=== PATIENT | female | born 1965 | race Caucasian/White ===

== ENCOUNTER 2021-03-12 21:04 | Inpatient (IN) | payer OTHER ==
[~2021-03-12] VITALS: Ht 165.1 cm; Wt 154.9 kg
[2021-03-12 21:06] VITALS: BP 166/74
[2021-03-12] MEDS ORDERED: TRAZODONE HCL50 MG PO (21:11)
[2021-03-12] MEDS ORDERED: CALCIUM500 MG PO (21:11)
[2021-03-12] MEDS ORDERED: ASA81BEC PO (21:11)
[2021-03-12] MEDS ORDERED: ZOLOFT25 MG PO (21:11)
[2021-03-12] MEDS ORDERED: B12 ACTIVE1000 MCG PO (21:12)
[2021-03-12] MEDS ORDERED: VITAMIN C500 M2 PO (21:12)
[2021-03-12] MEDS ORDERED: OMEPRAZOLE40 MG PO (21:12)
[2021-03-12] MEDS ORDERED: OXYBUTYNIN 5 MG5 M2 PO (21:13)
[2021-03-12] MEDS ORDERED: LIPITOR20 MG PO (21:13)
[2021-03-12 21:33] LABS: ABSOLUTE EOSINOPHILS 0.1 thou/uL (0.0-0.7); ABSOLUTE LYMPHOCYTES 0.9 thou/uL (0.8-5.3); ABSOLUTE MONOCYTES 0.2 thou/uL (0.0-1.2); EOSINOPHILS 2.8 %; HEMOGLOBIN 12.5 gm/dL (12.0-15.0); LYMPHOCYTES 28.6 %; MCH 30.1 pg (26.0-34.0); MCHC 33.8 g/dL (28.0-37.0); MCV 89.1 fL (80.0-100.0); MONOCYTES 7.4 %; MPV 7.5 fl. (7.2-11.1); NUCLEATED RBCS 0 /100WBC; PLATELET COUNT* 101 thou/uL (150-400); POLYS 60.2 %; RBC 4.16 mil/uL (4.20-5.00); RDW-CV 14.6 % (10.5-14.5); WBC 3.3 thou/uL (4.0-11.0)
[2021-03-12 21:42] LABS: CALCIUM 8.5 mg/dL (8.5-10.1); CREATININE 1.1 mg/dL (0.6-1.3); POTASSIUM 4.3 mmol/L (3.5-5.1)
[2021-03-12 21:46] LABS: ALBUMIN 3.4 g/dL (3.4-5.0); MAGNESIUM 1.8 mg/dL (1.8-2.4); TOTAL BILIRUBIN 0.7 mg/dL (<0.1-1.0); TOTAL PROTEIN 7.2 g/dL (6.4-8.2)
[2021-03-12 23:29] LABS: URINE BILIRUBIN NEGATIVE (Negative); URINE BLOOD TRACE (Negative); URINE COLOR YELLOW; URINE GLUCOSE-RANDOM NEGATIVE (Negative); URINE KETONES NEGATIVE (Negative); URINE PROTEIN NEGATIVE (Negative); URINE SPECIFIC GRAVITY <= 1.005 (1.005-1.030); URINE UROBILINOGEN 0.2 E.U./dl (0.2-1.0)
[2021-03-12 23:31] LABS: URINE CLARITY SL CLOUDY; URINE LEUKOCYTES-REFLEX 3+ (Negative); URINE NITRITE-REFLEX POSITIVE (Negative)
[2021-03-12 23:39] LABS: BACTERIA-REFLEX >30 Many /HPF (None Seen); CASTS None Seen /LPF (None Seen); CRYSTALS None Seen /LPF (None Seen); MUCUS 4-6 Moderate strn/LPF (None Seen); SQUAMOUS 0-3 Few /LPF (0-3); URINE WBC-REFLEX >25 Many /HPF (0-5); WBC CLUMPS Few (None Seen)
[2021-03-13 02:00] VITALS: BP 142/70
--- NOTE | 2021-03-13 04:45 | NUR ---
PT ARRIVED TO THE UNIT AT 0230. A&O X 4. ON RA. FENTANYL GIVEN FOR PAIN. IVF INFUISING ORDERED. CALL LIGHT WITHIN REACH. WILL CONTINUE TO MONITOR.
[2021-03-13 05:58] VITALS: BP 168/70
[2021-03-13 08:05] VITALS: BP 152/84
--- NOTE | 2021-03-13 11:42 | EKG ---
[place] [address] ELECTROCARDIOGRAM REPORT Name: PIERO ORTIZ Room: [address] [facility]#: [id number] Admission: 03/13/21 Attend Phys: Skinny Stover, Discharge: Date of : 61 Date of Service: 03/12/212118 Report #: [id number] THIS REPORT FOR: //name// [facility] ED Test Date: 2021-03-12 Test Time: 21:19:53 Pat Name: PIERO ORTIZ Department: Room: [facility] Gender: F Clinic Physician: RAULITO : [id number] Requested By: Sheila Alfonso Order Number: [id number] MD: Armin Castro Measurements Intervals [place] Rate: 66 P: 66 ME: 173 QRS: 27 QRSD: 97 T: 33 QT: 398 QTc: 417 Interpretive Statements Sinus rhythm Low voltage, precordial leads Probable anteroseptal infarct, old No previous ECG available for comparison Electronically Signed On 03-13-2021 11:42:14 CDT by Armin Castro [email or web address] <ELECTRONICALLY SIGNED> By: Jose R Castro MD, [facility] 03/13/21 1142 18 18 Jose R Castro MD, [facility] /EPI
--- NOTE | 2021-03-13 14:43 | NUR ---
Pt is A&O. Resides at home. Pt uses a walker and wc for mobility. Hx of HH and SNF. Therapy evals ordered. Further imaging to be completed. IR consulted. CM following for dc needs.
[2021-03-13 15:55] VITALS: BP 144/81
--- NOTE | 2021-03-13 18:14 | NUR ---
PATIENT HAS REMAINED A&OX4, PLEASANT AND COOPERATIVE WITH CARES THIS SHIFT. FLUIDS AND PRN PAIN MEDICATION ADMINISTERED ORDERED. PATIENT CALLS OUT APPROPRIATELY FOR ASSISTANCE WITH GETTING UP TO BSC. CALL LIGHT AND FREQUENTLY USED ITEMS WITHIN REACH.
[2021-03-13 19:45] VITALS: BP 157/76
--- NOTE | 2021-03-14 05:15 | NUR ---
PT A&O X 4. ON RA. BP HIGH. BACK PAIN MANAGED WITH FENTANYL. C/O HEADACHE AND TYLENOL GIVEN. UP TO BSC WITH SBA. INCONTINENT AT TIMES. IVF INFUISING. CALL LIGHT WITHIN REACH. WILL CONTINUE TO MONITOR.
[2021-03-14 08:12] VITALS: BP 183/109
[2021-03-14 10:40] LABS: ABSOLUTE EOSINOPHILS 0.1 thou/uL (0.0-0.7); ABSOLUTE LYMPHOCYTES 0.9 thou/uL (0.8-5.3); ABSOLUTE MONOCYTES 0.2 thou/uL (0.0-1.2); ABSOLUTE NEUTROPHILS 1.3 thou/uL (1.6-8.1); BASOPHILS 1.1 %; EOSINOPHILS 4.7 %; HEMATOCRIT 37.7 % (37.0-47.0); HEMOGLOBIN 12.5 gm/dL (12.0-15.0); LYMPHOCYTES 35.6 %; MCH 29.9 pg (26.0-34.0); MCHC 33.2 g/dL (28.0-37.0); MCV 90.3 fL (80.0-100.0); MONOCYTES 8.2 %; MPV 8.2 fl. (7.2-11.1); NUCLEATED RBCS 0 /100WBC; PLATELET COUNT* 103 thou/uL (150-400); POLYS 50.4 %; RBC 4.17 mil/uL (4.20-5.00); RDW-CV 14.7 % (10.5-14.5); WBC 2.5 thou/uL (4.0-11.0)
[2021-03-14 11:06] LABS: CALCIUM 8.6 mg/dL (8.5-10.1); POTASSIUM 4.3 mmol/L (3.5-5.1)
--- NOTE | 2021-03-14 13:33 | NUR ---
Pt will be inpt for a few more days. Ortho consulted. Therapies to see post ortho recs. ARU consulted. CM following.
[2021-03-14 16:55] VITALS: BP 140/79
--- NOTE | 2021-03-14 17:08 | NUR ---
pt up with gait belt and 1 asst. pt did have pain rated at a 6 early this am was given pain meds and then again at 1445. Pain has moved to a rate of 2 and pt is resting with call light in reach and fall precautions in place.
[2021-03-14 21:15] VITALS: BP 155/71
[2021-03-14 23:33] VITALS: BP 147/79
[2021-03-15 04:41] VITALS: BP 179/94
--- NOTE | 2021-03-15 05:08 | NUR ---
PT AO X4 THIS PM SHIFT, SHE REPORTS PAIN IN NECK AND BACK 5/10 FOR WHICH ORAL AND IV MEDS WERE ADMINISTERED WITH GOOD RESULTS. PT IS PERIODICALY INCONTINENT OF URINE, SHE DID GET UP TO BSC AND HAD A BM LAST PM. PT HAS VARIOUS BRUISES ALL OVER FROM HOW SHE EXPLAINS HER RECENT FALLS. PT HAS IVF INFUSING PER MAR, CALL LIGHT WITHIN REACH, BED ALARM ON FOR SAFETY
[2021-03-15 07:10] VITALS: BP 176/83
[2021-03-15 10:12] LABS: HEMATOCRIT 38.5 % (37.0-47.0); HEMOGLOBIN 12.6 gm/dL (12.0-15.0); MCHC 32.7 g/dL (28.0-37.0); MCV 88.8 fL (80.0-100.0); MPV 7.1 fl. (7.2-11.1); RBC 4.34 mil/uL (4.20-5.00); RDW-CV 14.8 % (10.5-14.5); WBC 2.8 thou/uL (4.0-11.0)
[2021-03-15 10:24] LABS: CALCIUM 8.8 mg/dL (8.5-10.1); CREATININE 1.1 mg/dL (0.6-1.3); POTASSIUM 4.4 mmol/L (3.5-5.1)
[2021-03-15 15:40] VITALS: BP 139/72
--- NOTE | 2021-03-15 15:57 | NUR ---
PT REMIANED ALERT AND ORIENTED. INCONTINENT AT TIMES. PAIN MEDS GIVEN ORDERED. FALL RISK PRECAUTIONS IN PLACE. HOURLY ROUNDING COMPLETED.
[2021-03-15 20:30] VITALS: BP 170/81
--- NOTE | 2021-03-16 07:15 | NUR ---
PATIENT SLEPT MOST OF THE NIGHT. IV FLUIDS CONTINUE TO INFUSE ORDERED. PATIENT WAS GIVEN PAIN MEDICINE ONCE THIS SHIFT. WILL CONTINUE TO MONITOR.
[2021-03-16 07:20] VITALS: BP 172/85
[2021-03-16] MEDS ORDERED: LEVOFLOXACIN500 MG PO (09:53)
[2021-03-16 12:05] VITALS: BP 172/85
--- NOTE | 2021-03-16 15:23 | NUR ---
PT GIVEN DISCHARGE INFORMATION. CARE NOTES, AND PRESCRIPTION. IV REMOVED. PT BELONGINGS GATHERED. PT LEFT VIA WHEELCHAIR WITH NURSING STAFF TO HOME WITH HOME HEALTH.
== END 2021-03-16 15:35 | disposition home health service (06) | DRG 553 ==
LOC: M.ERS 21:04 → M.TBA-ER 03-13 00:32 → M.3W 03-13 00:32
PROVIDERS: Emergency Medicine; Internal Medicine; ADMIT Internal Medicine; ATTEND Internal Medicine
DX: M87.151 Osteonecrosis due to drugs, right femur (principal); D61.811 Other drug-induced pancytopenia; S32.010A Wedge compression fracture of first lumbar vertebra, initial encounter for closed fracture; Z68.43 Body mass index [BMI] 50.0-59.9, adult; N30.00 Acute cystitis without hematuria; E66.01 Morbid (severe) obesity due to excess calories; I10 Essential (primary) hypertension; M06.9 Rheumatoid arthritis, unspecified; F32.9 Major depressive disorder, single episode, unspecified; M19.90 Unspecified osteoarthritis, unspecified site; M81.0 Age-related osteoporosis without current pathological fracture; M16.11 Unilateral primary osteoarthritis, right hip; M85.80 Other specified disorders of bone density and structure, unspecified site; T38.0X5A Adverse effect of glucocorticoids and synthetic analogues, initial encounter; Z20.822 Contact with and (suspected) exposure to COVID-19; Y92.89 Other specified places as the place of occurrence of the external cause; Z79.82 Long term (current) use of aspirin; Z79.899 Other long term (current) drug therapy